=== PATIENT | female | born 1970 | race Caucasian/White ===

== ENCOUNTER 2018-10-24 15:08 | Emergency (ER) | payer BC ==
[~2018-10-24] VITALS: Ht 160 cm; Wt 101.2 kg
--- OUTSIDE RECORDS SUMMARY | 2018-10-24 15:14 | XMS REPORT | Continuity of Care Document ---
Author Organization Unknown Address Unknown Allergies There is no data. Medications There is no data. Problems There is no data. Procedures There is no data. Results Test Result Range TSH w/ FREE T4 - 07/24/18 08:02 TSH 0.84 mIU/L NRG T4, FREE 1.1 ng/dL 0.8-1.8 LIPID PANEL - 07/24/18 08:02 CHOLESTEROL, TOTAL 249 mg/dL <200 HDL CHOLESTEROL 43 mg/dL >50 TRIGLYCERIDES 287 mg/dL <150 LDL-CHOLESTEROL 159 mg/dL (calc) NRG CHOL/HDLC RATIO 5.8 (calc) <5.0 NON HDL CHOLESTEROL 206 mg/dL (calc) <130 CMP - 07/24/18 08:02 GLUCOSE 345 mg/dL 65-99 UREA NITROGEN (BUN) 15 mg/dL 7-25 CREATININE 0.78 mg/dL 0.50-1.05 eGFR NON-AFR. PRYDEINIG 89 mL/min/1.73m2 > OR=60 eGFR 103 mL/min/1.73m2 > OR=60 BUN/CREATININE RATIO NOT APPLICABLE (calc) 6-22 SODIUM 137 mmol/L 135-146 POTASSIUM 4.6 mmol/L 3.5-5.3 CHLORIDE 99 mmol/L 98-110 CARBON DIOXIDE 26 mmol/L 20-32 CALCIUM 9.4 mg/dL 8.6-10.4 PROTEIN, TOTAL 6.9 g/dL 6.1-8.1 ALBUMIN 4.5 g/dL 3.6-5.1 GLOBULIN 2.4 g/dL (calc) 1.9-3.7 ALBUMIN/GLOBULIN RATIO 1.9 (calc) 1.0-2.5 BILIRUBIN, TOTAL 0.5 mg/dL 0.2-1.2 ALKALINE PHOSPHATASE 84 U/L 33-130 AST 30 U/L 10-35 ALT 59 U/L 6-29 CBC - 07/24/18 08:02 WHITE BLOOD CELL COUNT 6.4 Thousand/uL 3.8-10.8 RED BLOOD CELL COUNT 5.27 Million/uL 3.80-5.10 HEMOGLOBIN 15.3 g/dL 11.7-15.5 HEMATOCRIT 47.5 % 35.0-45.0 MCV 90.1 fL 80.0-100.0 MCH 29.0 pg 27.0-33.0 MCHC 32.2 g/dL 32.0-36.0 RDW 13.4 % 11.0-15.0 PLATELET COUNT 261 Thousand/uL 140-400 MPV 10.5 fL 7.5-12.5 ABSOLUTE NEUTROPHILS 4026 cells/uL [id number] ABSOLUTE LYMPHOCYTES 1760 cells/uL 850-3900 ABSOLUTE MONOCYTES 333 cells/uL 200-950 ABSOLUTE EOSINOPHILS 230 cells/uL 15-500 ABSOLUTE BASOPHILS 51 cells/uL 0-200 NEUTROPHILS 62.9 % NRG LYMPHOCYTES 27.5 % NRG MONOCYTES 5.2 % NRG EOSINOPHILS 3.6 % NRG BASOPHILS 0.8 % NRG A1C - 07/24/18 08:02 HEMOGLOBIN A1c >14.0 % of total Hgb <5.7 Encounters ACCT No. Visit Date/Time Discharge Status Pt. Type Provider Facility Loc./Unit Complaint [id number] 10/23/2018 10:20:00 [facility] [id number] 07/24/2018 08:00:00 Document Registration
[2018-10-24 15:50] VITALS: BP_SYST 107; BP_SYST 108; BP_SYST 126; BP_DIAS 61; BP_DIAS 67; BP_DIAS 68
[2018-10-24 16:00] LABS: HEMATOCRIT 44 % (35-52); HEMOGLOBIN 14.5 G/DL (11.5-16.0); MEAN CORPUSCULAR HEMOGLOBIN 29 PG (25-34); MEAN CORPUSCULAR HGB CONC 33 G/DL (32-36); MEAN CORPUSCULAR VOLUME 88 FL (80-99); PLATELET COUNT 335 10^3/uL (130-400); RED CELL DISTRIBUTION WIDTH 13.3 % (10.0-14.5)
[2018-10-24 16:01] LABS: BASOPHILS % (AUTO) 1 % (0-10); EOSINOPHILS # (AUTO) 0.3 10^3/uL (0.0-0.3); EOSINOPHILS % (AUTO) 2 % (0-10); LYMPHOCYTES # (AUTO) 2.6 X 10^3 (1.0-4.0); LYMPHOCYTES % (AUTO) 22 % (12-44); MEAN PLATELET VOLUME 10.2 FL (7.4-10.4); MONOCYTES # (AUTO) 0.8 X 10^3 (0.0-1.0); MONOCYTES % (AUTO) 6 % (0-12); NEUTROPHILS # (AUTO) 8.2 X 10^3 (1.8-7.8); NEUTROPHILS % (AUTO) 69 % (42-75)
[2018-10-24] MEDS ORDERED: PREG75CA (16:01)
[2018-10-24] MEDS ORDERED: CITA20TA9 (16:01)
[2018-10-24] MEDS ORDERED: LYRICA (16:01)
[2018-10-24] MEDS ORDERED: DULA1.5P2 (16:01)
[2018-10-24] MEDS ORDERED: LISI-552 (16:01)
[2018-10-24] MEDS ORDERED: MELO15TA39 (16:01)
[2018-10-24] MEDS ORDERED: NORT25CA (16:01)
[2018-10-24 16:02] LABS: BASOPHILS # (AUTO) 0.1 10^3/uL (0.0-0.1)
[2018-10-24 16:31] LABS: CHLORIDE 102 MMOL/L (98-107); POTASSIUM 4.2 MMOL/L (3.6-5.0); SODIUM 140 MMOL/L (135-145)
[2018-10-24 16:32] LABS: ALKALINE PHOSPHATASE 67 U/L (40-136); BILIRUBIN,TOTAL 0.2 MG/DL (0.1-1.0); BUN/CREATININE RATIO 29; CALCIUM 9.5 MG/DL (8.5-10.1); CARBON DIOXIDE 24 MMOL/L (21-32); CREATININE SERUM 0.83 MG/DL (0.60-1.30); GFR ESTIMATED > 60; GLUCOSE 117 MG/DL (70-105)
[2018-10-24 16:33] LABS: ALANINE AMINOTRANSFERASE 33 U/L (0-55); ALBUMIN 4.6 GM/DL (3.2-4.5); TOTAL PROTEIN 7.5 GM/DL (6.4-8.2)
--- NOTE | 2018-10-24 16:52 | ED General ---
General Chief Complaint: Dizziness/Syncope Stated Complaint: BP AND HEART RATE HIGH, DIZZY Nursing Triage Note: Pt arrival to ED referred from [facility]. Pt experiencing dizziness/lightheaded daily since Monday. Had labs done at [facility] on yesterday. Pt reported to them her BP are running higher and pulse over 90 all week. Pt diagnosed diabetic 6 weeks ago and placed on Farxiga 1 week ago. Pt reports the lightheaded feeling comes on while sitting at desk and about 1 hr after eating breakfast. Nursing Sepsis Screen: No Definite Risk Source of Information: Patient, Spouse Exam Limitations: No Limitations History of Present Illness Date Seen by Provider: Oct 24, 2018 Time Seen by Provider: 16:38 Initial Comments The patient presents to ER by private conveyance with her and chief savita phelps she's having some dizziness feeling lightheaded like she is going to pass out. She's not had any syncopal episodes. 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 She went to her doctor yesterday and lab was drawn including a urine and TSH and all was normal. They suspected maybe it was the farxiga she started for her diabetes last week but since she was feeling better yesterday but decided to keep going. Today she said the symptoms came back on and she felt like she was going to pass out so she went to urgent care and they told her that they would only repeat her labs and they would be send out and would be quicker she came to the ER so she came here. She's feeling okay now. She does not seem to have problems with changing position, vertigo, standing. She does not take beta blockers. She does take lisinopril for her blood pressure. She also noted her heart rate has been in the 90s and her blood pressure is been high in the 140 range yesterday and today. She's been taking her medications as prescribed. She has no other symptoms no cough, fevers, chills, nausea, diarrhea, constipation, decreased appetite or unexpected weight changes recently. Allergies and Home Medications Allergies Coded Allergies: clindamycin (Unverified Adverse Reaction, Mild, 10/24/18) Uncoded Allergies: PENICILLIN (Adverse Reaction, Unknown, 10/24/18) SULFA (Adverse Reaction, Unknown, 10/24/18) Patient Home Medication List Home Medication List Reviewed: Yes Review of Systems Review of Systems Constitutional: No chills, No fever EENTM: No ear discharge, No ear pain Respiratory: No cough, No short of breath Cardiovascular: No chest pain, No edema Gastrointestinal: No abdominal pain, No nausea Genitourinary: No decreased output, No discharge, No dysuria Past Etijhwx-Osypsr-Aaaqfi Hx Patient Social History Alcohol Use: Denies Use Recreational Drug Use: No Smoking Status: Never a Smoker 2nd Hand Smoke Exposure: No Recent Foreign Travel: No Contact w/Someone Who Travel: No Recent Infectious Disease Expo: No Recent Hopitalizations: No Physical Abuse: No Sexual Abuse: No Mistreated: No Fear: No Seasonal Allergies Seasonal Allergies: No Past Medical History Surgeries: Yes Appendectomy, Gallbladder, Hysterectomy, Tubal Ligation Respiratory: No Cardiac: Yes High Cholesterol, Hypertension Neurological: No (has Fibromyalgia) OCCUPATIONAL HEALTH COORDINATOR History: Hysterectomy, Tubal Ligation Genitourinary: No Gastrointestinal: No Musculoskeletal: Yes Fibromyalgia Endocrine: Yes (Diagnosed Spring 2018) Diabetes, Non-Insulin dep HEENT: No Cancer: No Psychosocial: Yes Depression Integumentary: No Physical Exam Vital Signs Vital Signs - First Documented 10/24/18 15:20 Temp 96.9 Pulse 102 Resp 20 B/P (MAP) 122/70 (87) Pulse Ox 100 O2 Delivery Room Air Capillary Refill : Less Than 3 Seconds Height, Weight, BMI Height: 5'3.00" Weight: 223lbs. oz. 101.678660aj; BMI Method:Stated General Appearance: No Apparent Distress, WD/WN Eyes: Bilateral Eye Normal Inspection, Bilateral Eye PERRL, Bilateral Eye EOMI HEENT: PERRL/EOMI, Normal ENT Inspection, Pharynx Normal, Moist Mucous Membranes Neck: Full Range of Motion, Normal Inspection Respiratory: Lungs Clear, Normal Breath Sounds, No Accessory Muscle Use, No Respiratory Distress Cardiovascular: Regular Rate, Rhythm, Normal Peripheral Pulses Gastrointestinal: Normal Bowel Sounds, Non Tender, Soft Extremity: Normal Capillary Refill, Normal Inspection, Normal Range of Motion, Non Tender, No Pedal Edema Neurologic/Psychiatric: Alert, Oriented x3, No Motor/Sensory Deficits, cash posting specialist II-X II Norm as Tested Skin: Normal Color, Warm/Dry Progress/Results/Core Measures Suspected Sepsis Recent Fever Within 48 Hours: No Infection Criteria Present: None New/Unexplained Altered Menta: No Sepsis Screen: No Definite Risk SIRS Temperature:96.9 Pulse: 91 Respiratory Rate: 20 Laboratory Tests 10/24/18 15:30: White Blood Count 12.0H Blood Pressure 107 /61 Mean: 76 Laboratory Tests 10/24/18 15:30: Creatinine 0.83, Platelet Count 335, Total Bilirubin 0.2 Results/Orders Lab Results Laboratory Tests Test 10/24/18 15:30 Range/Units White Blood Count 12.0 H 4.3-11.0 10^3/uL Red Blood Count 4.94 4.35-5.85 10^6/uL Hemoglobin 14.5 11.5-16.0 G/DL Hematocrit 44 35-52 % Mean Corpuscular Volume 88 80-99 FL Mean Corpuscular Hemoglobin 29 25-34 PG Mean Corpuscular Hemoglobin Concent 33 32-36 G/DL Red Cell Distribution Width 13.3 10.0-14.5 % Platelet Count 335 130-400 10^3/uL Mean Platelet Volume 10.2 7.4-10.4 FL Neutrophils (%) (Auto) 69 42-75 % Lymphocytes (%) (Auto) 22 12-44 % Monocytes (%) (Auto) 6 0-12 % Eosinophils (%) (Auto) 2 0-10 % Basophils (%) (Auto) 1 0-10 % Neutrophils # (Auto) 8.2 H 1.8-7.8 X 10^3 Lymphocytes # (Auto) 2.6 1.0-4.0 X 10^3 Monocytes # (Auto) 0.8 0.0-1.0 X 10^3 Eosinophils # (Auto) 0.3 0.0-0.3 10^3/uL Basophils # (Auto) 0.1 0.0-0.1 10^3/uL Sodium Level 140 135-145 MMOL/L Potassium Level 4.2 3.6-5.0 MMOL/L Chloride Level 102 98-107 MMOL/L Carbon Dioxide Level 24 21-32 MMOL/L Anion Gap 14 5-14 MMOL/L Blood Urea Nitrogen 24 H 7-18 MG/DL Creatinine 0.83 0.60-1.30 MG/DL Estimat Glomerular Filtration Rate > 60 BUN/Creatinine Ratio 29 Glucose Level 117 H 70-105 MG/DL Calcium Level 9.5 8.5-10.1 MG/DL Corrected Calcium 8.5-10.1 MG/DL Total Bilirubin 0.2 0.1-1.0 MG/DL Aspartate Amino Transf (AST/SGOT) 23 5-34 U/L Alanine Aminotransferase (ALT/SGPT) 33 0-55 U/L Alkaline Phosphatase 67 40-136 U/L Total Protein 7.5 6.4-8.2 GM/DL Albumin 4.6 H 3.2-4.5 GM/DL My Orders Orders - GEO,MELE Cher Ed Iv/Invasive Line Start (10/24/18 15:50) Orthostatic Vital Signs (Adult (10/24/18 15:50) Cbc With Automated Diff (10/24/18 15:50) Comprehensive Metabolic Panel (10/24/18 15:50) Vital Signs/I&O 10/24/18 10/24/18 15:20 15:50 Temp 96.9 Pulse 102 91 91 95 Resp 20 B/P (MAP) 122/70 (87) 107/61 (76) 126/68 (87) 108/67 (81) Pulse Ox 100 O2 Delivery Room Air Capillary Refill : Less Than 3 Seconds Blood Pressure Mean: 76 Progress Note : Time: 16:50 Progress Note Benign history and clinical exam. I would suspect the recent addition of Farxiga to be the culprit if labs again are unremarkable. Urinalysis was obtained yesterday and was normal. She certainly has not been tachycardic with a heart rate in the low 80s nor has she been hypotensive with a blood pressure running around 115/80. Orthostatic vital signs are unremarkable. Her BUNs 24 indicating she's dehydrated today. We've offered to do IV fluids versus oral rehydration and she would prefer to drink which is probably superior. We'll have her discontinue the Farxiga and follow-up in one to 2 weeks with primary care. Departure Impression Primary Impression: Near syncope Disposition: 01 HOME, SELF-CARE Condition: Stable Departure-Patient Inst. Decision time for Depature: 16:51 Referrals: PETER REIS (PCP) Primary Care Physician Patient Instructions: Near Fainting (DC) Add. Discharge Instructions: Discontinue the Farxiga. Make a follow-up appointment with your primary doctor in 1-2 weeks or reevaluation of your symptoms. Drink lots of fluids as you are dehydrated. Sugar-free sports drinks are encouraged. Discontinue caffeine for the next 1-2 weeks. If you have worsening symptoms or new symptoms please return to the ER for further evaluation otherwise follow up with your primary doctor. All discharge instructions reviewed with patient and/or family. Voiced understanding. Work/School Note: Work Release Form Date Seen in the Emergency Department: Oct 24, 2018 Return to Work: Oct 25, 2018 Restrictions: No Restrictions MELE GUARDADO Oct 24, 2018 16:52
[2018-10-24 17:13] VITALS: BP 116/81
== END 2018-10-24 17:13 | disposition home or self-care (01) ==
LOC: EDUNIT# 15:08 → ER FS 15:09
DX: R55 Syncope and collapse (principal); E78.00 Pure hypercholesterolemia, unspecified; I10 Essential (primary) hypertension; E11.9 Type 2 diabetes mellitus without complications; F32.9 Major depressive disorder, single episode, unspecified; M79.7 Fibromyalgia; Z90.710 Acquired absence of both cervix and uterus; Z88.1 Allergy status to other antibiotic agents; Z88.0 Allergy status to penicillin; Z88.2 Allergy status to sulfonamides; Z98.51 Tubal ligation status; Z90.49 Acquired absence of other specified parts of digestive tract; Z98.890 Other specified postprocedural states
CPT/HCPCS: 36415; 80053; 85025

== ENCOUNTER 2019-07-03 18:06 | Emergency (ER) | payer BC, OTHER ==
[~2019-07-03] VITALS: Ht 160 cm; Wt 102.0 kg
[~2019-07-03 18:06] MED LIST: CITA20TA9; DULA1.5P2; LISI-552; LYRICA; MELO15TA39; NORT25CA; PREG75CA
[2019-07-03] MEDS ORDERED: ONDANSETRON 4 MG/2 ML (SDV) Z0FRAN IVP STA (18:26)
[2019-07-03] MEDS ORDERED: NS IV 1000 ML 1,000 ML IV STA (18:26)
[2019-07-03 18:34] LABS: WHITE BLOOD COUNT 6.9 10^3/uL (4.3-11.0)
[2019-07-03 18:35] LABS: BASOPHILS # (AUTO) 0.1 10^3/uL (0.0-0.1); BASOPHILS % (AUTO) 1 % (0-10); EOSINOPHILS # (AUTO) 0.2 10^3/uL (0.0-0.3); EOSINOPHILS % (AUTO) 3 % (0-10); HEMATOCRIT 46 % (35-52); HEMOGLOBIN 15.1 G/DL (11.5-16.0); LYMPHOCYTES # (AUTO) 2.1 X 10^3 (1.0-4.0); LYMPHOCYTES % (AUTO) 31 % (12-44); MEAN CORPUSCULAR HEMOGLOBIN 29 PG (25-34); MEAN CORPUSCULAR HGB CONC 33 G/DL (32-36); MEAN CORPUSCULAR VOLUME 86 FL (80-99); MONOCYTES # (AUTO) 0.8 X 10^3 (0.0-1.0); MONOCYTES % (AUTO) 12 % (0-12); NEUTROPHILS # (AUTO) 3.6 X 10^3 (1.8-7.8); NEUTROPHILS % (AUTO) 52 % (42-75); PLATELET COUNT 264 10^3/uL (130-400); RED CELL DISTRIBUTION WIDTH 13.8 % (10.0-14.5)
--- NOTE | 2019-07-03 18:36 | ED General ---
General Chief Complaint: General Problems/Pain Stated Complaint: SOB/CHEST FLUTTERING Nursing Triage Note: PT REPORTS SHE HAD A "STOMACH BUG" ON MONDAY AND TODAY HAS HAD SOME FLUTTERING IN HER CHEST AND FELT WEAK. Nursing Sepsis Screen: No Definite Risk Source of Information: Patient History of Present Illness Date Seen by Provider: Jul 03, 2019 Time Seen by Provider: 18:07 Initial Comments 49 yo F presents with feeling lightheaded and weak. She also has felt like her heart was fluttering in her chest today. She had a stomach bug Monday and was having a lot of vomiting. She still has a weak stomach and has not been eating normally since then. She denies any diarrhea. She denies any pain or burning with urination. She has not been taking her meds for diabetes normally either because of her stomach being upset and not eating as well. She denies any fever or chills. Allergies and Home Medications Allergies Coded Allergies: clindamycin (Unverified Adverse Reaction, Mild, 10/24/18) Uncoded Allergies: PENICILLIN (Adverse Reaction, Unknown, 10/24/18) SULFA (Adverse Reaction, Unknown, 10/24/18) Patient Home Medication List Home Medication List Reviewed: Yes Review of Systems Review of Systems Constitutional: No chills; dizziness; No fever; malaise, weakness (generalized) EENTM: no symptoms reported Respiratory: no symptoms reported Cardiovascular: palpitations (feeling like her heart was fluttering and extra beats) Gastrointestinal: No diarrhea; loss of appetite, nausea, vomiting Genitourinary: No dysuria, No pain Musculoskeletal: no symptoms reported Skin: no symptoms reported Psychiatric/Neurological: Weakness (general weakness) Past Tghvzrf-Ckfizx-Hnojxp Hx Past Med/Social Hx: Reviewed Nursing Past Med/Soc Hx Patient Social History Alcohol Use: Denies Use Recreational Drug Use: No Smoking Status: Never a Smoker 2nd Hand Smoke Exposure: No Recent Foreign Travel: No Contact w/Someone Who Travel: No Recent Infectious Disease Expo: No Recent Hopitalizations: No Physical Abuse: No Sexual Abuse: No Mistreated: No Fear: No Seasonal Allergies Seasonal Allergies: No Past Medical History Surgeries: Yes Appendectomy, Gallbladder, Hysterectomy, Tubal Ligation Respiratory: No Cardiac: Yes High Cholesterol, Hypertension 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 oz. 101.804913qn; 39.00 BMI Method:Stated General Appearance: WD/WN, Mild Distress HEENT: PERRL/EOMI, Normal ENT Inspection, Pharynx Normal Neck: Full Range of Motion, Normal Inspection, Non Tender, Supple Respiratory: Chest Non Tender, Lungs Clear, Normal Breath Sounds Cardiovascular: Regular Rate, Rhythm, No Edema, No Gallop, No JVD, No Murmur, Normal Peripheral Pulses Gastrointestinal: Normal Bowel Sounds, No Pulsatile Mass, Non Tender, Soft Extremity: Normal Capillary Refill, Non Tender, No Pedal Edema Neurologic/Psychiatric: Alert, Oriented x3, No Motor/Sensory Deficits Skin: Normal Color, Warm/Dry Progress/Results/Core Measures Suspected Sepsis Recent Fever Within 48 Hours: No Infection Criteria Present: None New/Unexplained Altered Menta: No Sepsis Screen: No Definite Risk SIRS Temperature: Pulse: 93 Respiratory Rate: 18 Laboratory Tests 07/03/19 18:27: White Blood Count 6.9 Blood Pressure 143 /84 Mean: 103 Laboratory Tests 07/03/19 18:27: Creatinine 0.85, Platelet Count 264, Total Bilirubin 0.3 Results/Orders Lab Results Laboratory Tests Test 07/03/19 18:27 07/03/19 18:35 Range/Units White Blood Count 6.9 4.3-11.0 10^3/uL Red Blood Count 5.28 4.35-5.85 10^6/uL Hemoglobin 15.1 11.5-16.0 G/DL Hematocrit 46 35-52 % Mean Corpuscular Volume 86 80-99 FL Mean Corpuscular Hemoglobin 29 25-34 PG Mean Corpuscular Hemoglobin Concent 33 32-36 G/DL Red Cell Distribution Width 13.8 10.0-14.5 % Platelet Count 264 130-400 10^3/uL Mean Platelet Volume 10.0 7.4-10.4 FL Neutrophils (%) (Auto) 52 42-75 % Lymphocytes (%) (Auto) 31 12-44 % Monocytes (%) (Auto) 12 0-12 % Eosinophils (%) (Auto) 3 0-10 % Basophils (%) (Auto) 1 0-10 % Neutrophils # (Auto) 3.6 1.8-7.8 X 10^3 Lymphocytes # (Auto) 2.1 1.0-4.0 X 10^3 Monocytes # (Auto) 0.8 0.0-1.0 X 10^3 Eosinophils # (Auto) 0.2 0.0-0.3 10^3/uL Basophils # (Auto) 0.1 0.0-0.1 10^3/uL Sodium Level 139 135-145 MMOL/L Potassium Level 3.9 3.6-5.0 MMOL/L Chloride Level 101 98-107 MMOL/L Carbon Dioxide Level 27 21-32 MMOL/L Anion Gap 11 5-14 MMOL/L Blood Urea Nitrogen 16 7-18 MG/DL Creatinine 0.85 0.60-1.30 MG/DL Estimat Glomerular Filtration Rate > 60 BUN/Creatinine Ratio 19 Glucose Level 123 H 70-105 MG/DL Calcium Level 9.4 8.5-10.1 MG/DL Corrected Calcium 9.0 8.5-10.1 MG/DL Magnesium Level 2.0 1.6-2.4 MG/DL Total Bilirubin 0.3 0.1-1.0 MG/DL Aspartate Amino Transf (AST/SGOT) 42 H 5-34 U/L Alanine Aminotransferase (ALT/SGPT) 77 H 0-55 U/L Alkaline Phosphatase 70 40-136 U/L Total Protein 7.6 6.4-8.2 GM/DL Albumin 4.5 3.2-4.5 GM/DL Lipase 64 8-78 U/L Urine Color YELLOW Urine Clarity SLT CLOUDY Urine pH 6.0 5-9 Urine Specific Reading 1.015 L 1.016-1.022 Urine Protein NEGATIVE NEGATIVE Urine Glucose (UA) 3+ H NEGATIVE Urine Ketones NEGATIVE NEGATIVE Urine Nitrite NEGATIVE NEGATIVE Urine Bilirubin NEGATIVE NEGATIVE Urine Urobilinogen 1.0 < = 1.0 MG/DL Urine Leukocyte Esterase TRACE H NEGATIVE Urine RBC (Auto) NEGATIVE NEGATIVE Urine RBC NONE /HPF Urine WBC 2-5 /HPF Urine Squamous Epithelial Cells 0-2 /HPF Urine Crystals NONE /LPF Urine Bacteria MODERATE H /HPF Urine Casts NONE /LPF Urine Mucus NONE /LPF Urine Culture Indicated YES My Orders Orders - MADELINE ALLEN MD Ekg Tracing (07/03/19 18:13) Comprehensive Metabolic Panel (07/03/19 18:26) Lipase (07/03/19 18:26) Ua Culture If Indicated (07/03/19 18:26) Ed Iv/Invasive Line Start (07/03/19 18:26) Cbc With Automated Diff (07/03/19 18:26) Magnesium (07/03/19 18:26) Ondansetron Injection (Zofran Injectio (07/03/19 18:26) Ns Iv 1000 Ml (Sodium Chloride 0.9%) (07/03/19 18:26) Urine Culture (07/03/19 18:35) Orthostatic Vital Signs (Adult (07/03/19 19:41) Vital Signs/I&O 07/03/19 07/03/19 07/03/19 18:28 19:50 20:01 Temp 36.8 Pulse 93 87 90 84 90 Resp 18 18 B/P (MAP) 143/84 (103) 114/70 (85) 120/75 129/80 (96) 120/75 (90) Pulse Ox 100 O2 Delivery Room Air Room Air Capillary Refill : Less Than 3 Seconds Blood Pressure Mean: 103 Progress Note #1: Progress Note Obtain IV access and check basic labs. Give IV fluids for hydration. Electrocardiogram does not show any acute significant abnormality and she is in sinus rhythm. Progress Note #2: Time: 18:53 Progress Note CBC is stable without acute significant abnormality. Her urinalysis shows 3+ glucose with a specific gravity of 1.015. She also has bacteria in the UA and a culture will be done. Progress Note #3: Time: 19:34 Progress Note On recheck of the patient she was feeling better. Her fluids had finished infusing. Reviewed with the patient that her electrolytes and labs looked okay other than some bacteria in her urine. She continues to deny any UTI symptoms. We will perform orthostatic vitals and if she does well with those then discharge home otherwise give an additional liter of NS, then discharge to home. Progress Note #4: Time: 19:54 Progress Note Orthostatics looked fine. discharge to home as planned. pt refused antibiotic for urine since she had no UTI symptoms and refused zofran as she felt she did not need an anti-emetic to settle her stomach. ECG Initial ECG Impression Date: Jul 03, 2019 Initial ECG Impression Time: 18:09 Initial ECG Rate: 95 Initial ECG Rhythm: Normal Sinus Initial ECG Comparisson: No Previous ECG Available Comment Normal sinus rhythm with a heart rate 95 bpm. PA interval of 131 ms. QT interval 364 ms and a QTc interval 458 ms. There is no acute ST elevation. There is no prior tracing immediately available for comparison. Departure Impression Primary Impression: Dehydration Additional Impressions: Bacteriuria Intermittent palpitations Fluttering sensation of heart Disposition: 01 HOME, SELF-CARE Condition: Stable Departure-Patient Inst. Decision time for Depature: 19:57 Referrals: PETER REIS (PCP) Primary Care Physician Patient Instructions: Palpitations (DC), Dehydration, Adult (DC) Add. Discharge Instructions: Stay well hydrated and drink plenty of fluids Follow up with clinic for continued concerns or if not improving All discharge instructions reviewed with patient and/or family. Voiced understanding. MADELINE ALLEN MD Jul 03, 2019 18:36
[2019-07-03 18:46] LABS: CLARITY,URINE SLT CLOUDY; COLOR,URINE YELLOW; GLUCOSE, URINE (UA) 3+ (NEGATIVE); PROTEIN,URINE NEGATIVE (NEGATIVE)
[2019-07-03 18:47] LABS: BACTERIA,URINE MODERATE /HPF; BILIRUBIN,URINE NEGATIVE (NEGATIVE); KETONES,URINE NEGATIVE (NEGATIVE); LEUKOCYTE ESTERASE ,URINE TRACE (NEGATIVE); NITRITE,URINE NEGATIVE (NEGATIVE); SQUAMOUS EPITHELIAL CELL,UR 0-2 /HPF
[2019-07-03 18:59] LABS: ALANINE AMINOTRANSFERASE 77 U/L (0-55); ALKALINE PHOSPHATASE 70 U/L (40-136); BILIRUBIN,TOTAL 0.3 MG/DL (0.1-1.0); BUN/CREATININE RATIO 19; CALCIUM 9.4 MG/DL (8.5-10.1); CARBON DIOXIDE 27 MMOL/L (21-32); CHLORIDE 101 MMOL/L (98-107); CREATININE SERUM 0.85 MG/DL (0.60-1.30); GFR ESTIMATED > 60; GLUCOSE 123 MG/DL (70-105); POTASSIUM 3.9 MMOL/L (3.6-5.0); SODIUM 139 MMOL/L (135-145)
[2019-07-03 19:00] LABS: ALBUMIN 4.5 GM/DL (3.2-4.5); LIPASE 64 U/L (8-78); TOTAL PROTEIN 7.6 GM/DL (6.4-8.2)
[2019-07-03 19:50] VITALS: BP_SYST 114; BP_SYST 120; BP_SYST 129; BP_DIAS 70; BP_DIAS 75; BP_DIAS 80
[2019-07-03 20:01] VITALS: BP 120/75
== END 2019-07-03 20:01 | disposition home or self-care (01) ==
LOC: EDUNIT# 18:06 → ER FS 18:07
DX: E86.0 Dehydration (principal); R82.71 Bacteriuria; R00.2 Palpitations; E11.9 Type 2 diabetes mellitus without complications; Z88.1 Allergy status to other antibiotic agents; Z88.0 Allergy status to penicillin; Z88.2 Allergy status to sulfonamides; Z98.51 Tubal ligation status
CPT/HCPCS: 36415; 80053; 81000; 83690; 83735; 85025; 87088

== ENCOUNTER 2019-07-08 08:03 | Outpatient (RCR) | payer BC, OTHER | END 2019-10-06 | disposition home or self-care (01) | LOC: CARD 08:03 | PROVIDERS: ATTEND Nurse Practitioner | DX: R00.2 Palpitations (principal) | CPT/HCPCS: 93225; 93226 ==